=== PATIENT | male | born 1995 | race Caucasian/White ===

== ENCOUNTER 2017-07-04 16:36 | Emergency (ER) | payer OTHER ==
[2017-07-04] MEDS ORDERED: HYDROmorphone 2 MG/ML Syringe IVPUSH ONE (16:53)
[2017-07-04] MEDS ORDERED: Sodium Chloride 0.9% 2.5 ML Syringe FLUSH PRN (16:53)
[2017-07-04] MEDS ORDERED: Ondansetron 4 MG/2 ML SDV IVPUSH ONE (16:53)
[2017-07-04] MEDS ORDERED: Sodium Chloride 0.9% 10 ML Syringe FLUSH PRN (16:53)
[2017-07-04] MEDS ORDERED: Sodium Chloride 0.9% 1,000 ML IV ONE (16:53)
--- NOTE | 2017-07-04 17:01 | EDM.PDOC ---
ED HPI GENERAL MEDICAL PROBLEM - General Chief Complaint: Trauma Stated Complaint: BROKEN PELVIS Time Seen by Provider: 07/04/17 16:43 - History of Present Illness INITIAL COMMENTS - FREE TEXT/NARRATIVE: HISTORY AND PHYSICAL: History of present illness: Patient is a 21-year-old male who presents after sustaining an injury while at work yesterday and undergoing a CT scan as an outpatient and referred here for further evaluation and care. 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 Because of a malfunction of a cable the patient started descending rapidly but did not hit any other objects nor did he hit the ground because the safety harness engaged which was mostly wrapped around his pelvis area. He immediately had pain to his pelvis and lower back and abdomen and was seen by occupational health and today went over for a plain x-ray at [facility]. The patient was referred here as an outpatient to get a CT scan of the bony pelvis which indicated several bony fractures on the report. I reviewed that report indicates a slightly comminuted fracture of the left sacral alar, a fracture through the anterior inferior aspect of the acetabulum on the left, a fracture of the left symphysis pubis and a nondisplaced fracture of the left issue. The patient has been having excisional eating pain with any movement since this occurred and can barely ambulate. He has had no nausea or vomiting and has passed his urine. He has no neurosensory changes in his lower extremities but has great discomfort with any movement of his trunk or lower extremities. He has no chest pain no rib pain no neck pain had pain or upper extremity complaints. The patient has not had dizziness lightheadedness shortness of breath or chest pain. Review of systems: As per history of present illness and below otherwise all systems reviewed and negative. Past medical history: As per history of present illness and as reviewed below otherwise noncontributory. Surgical history: As per history of present illness and as reviewed below otherwise noncontributory. Social history: No reported history of drug or alcohol abuse. Family history: As per history of present illness and as reviewed below otherwise noncontributory. Physical exam: General: Well-developed well-nourished thin man who is nontoxic but is uncomfortable with any movement. Vital signs have been reviewed by me. HEENT: Atraumatic, normocephalic, pupils reactive, negative for conjunctival pallor or scleral icterus, mucous membranes moist, throat clear, neck supple, nontender, trachea midline. The patient has no midline step-offs tenderness or defects of the cervical spine Lungs: Clear to auscultation, breath sounds equal bilaterally, chest nontender. There is no defects deformities or crepitus and no wheezing or stridor is appreciated. Heart: S1S2, regular rhythm slightly tachycardic rate on my evaluation secondary to pain, negative for clicks, rubs, or JVD. Abdomen: Soft, nondistended, patient has normoactive bowel sounds and has diffuse lower abdominal tenderness with voluntary guarding and minimal upper abdominal tenderness. Negative for masses or hepatosplenomegaly. Pelvis: Stable but there is diffuse tenderness at all areas of palpation and the patient has difficulty focusing on any one area. Genitourinary: Testicles are descending bilaterally and there is no blood at the urethral meatus and no evidence of any external trauma. There is no swelling or tenderness appreciated Rectal: Deferred. Extremities: Atraumatic, negative for cords or calf pain. Neurovascular unremarkable. Patient has decreased range of motion of his lower extremities due to discomfort other no palpable deformities of any of his extremities nor any soft tissue swelling Neuro: Awake, alert, oriented. Cranial nerves II through XII unremarkable. Motor and sensory unremarkable throughout. Exam nonfocal. Dorsi and plantar flexion is intact 5/5 inclusive of the great toe bilaterally Back: There are no midline step-offs or defects of the thoracic or lumbar spine but there is diffuse lumbar spine tenderness which is difficult to ascertain if it is due to that region or due to the pelvic fractures that have been identified. Diagnostics: CBC CMP INR lipase UA CT scan of the lumbar spine and abdomen and pelvis 1 view chest x-ray CT scan of the bony pelvis has been reviewed by me and is as above Therapeutics: IV IV fluids Dilaudid Zofran Patient looks much improved from a pain perspective and is sitting more up in bed and more interactive. I discussed with him all testing results including the multiple findings on CAT scan including the minimal compression fractures at T10-T11 and T12 as well as the fractures of the left sacral alar, bilateral superior pubic rami near the acetabulum, left inferior pubic rami fracture and probable right inferior pubic rami fracture. He is also aware of the pelvic hemorrhage seen along the low left pelvic sidewall about the urinary bladder and in the presacral space. He currently is hemodynamically stable and is aware of the need for transfer as a result of these injuries. I discussed this case with the ER doctor at [facility] in [place], Dr. Olivarez, at [phone]. He agrees that as the patient is stable and the injury occurred yesterday that he can be transferred by ground which I also feel comfortable with. I will arrange the transfer and he has accepted the patient to their facility. As this trauma occurred yesterday a trauma alert and trauma code were not indicated and her surgeon was not contacted for management of this case as he clearly needed transfer where there is orthopedic/pelvic surgery and adequate resources to manage his pain and physical therapy. Critical care time excluding procedures--31 minutes Impression: Multiple pelvic and acetabular fractures with pelvic hemorrhage status post pelvic blunt trauma yesterday, now compression fractures at T10-T11 and T12 Definitive disposition and diagnosis as appropriate pending reevaluation and review of above. Pelvic & Left Leg Pain Score (Numeric/FACES): 4 - Related Data Allergies Allergy/AdvReac Type Severity Reaction Status Date / Time No Known Allergies Allergy Verified 07/04/17 17:44 Review of Systems - Review of Systems Review Of Systems: ROS reveals no pertinent complaints other than HPI. ED EXAM, GENERAL - Physical Exam Exam: See Below (See dictation) Course - Vital Signs Last Recorded V/S: Last Vital Signs Temp 37.9 C 07/04/17 16:56 Pulse 87 07/04/17 18:14 Resp 18 07/04/17 18:14 BP 110/63 07/04/17 18:14 Pulse Ox 98 07/04/17 18:14 - Orders/Labs/Meds Orders: Active Orders 24 hr Category Date Time Status Abdomen Pelvis w Cont [CT] Stat Exams 07/04/17 16:53 Taken Chest 1V Frontal [CR] Stat Exams 07/04/17 17:01 Taken Lumbar Spine wo Cont [CT] Stat Exams 07/04/17 16:53 Taken UA W/MICROSCOPIC [URIN] Stat Lab 07/04/17 16:52 Uncollected Sodium Chloride 0.9% [Saline Flush] Med 07/04/17 16:53 Active 10 ml FLUSH ASDIRECTED PRN Sodium Chloride 0.9% [Saline Flush] Med 07/04/17 16:53 Active 2.5 ml FLUSH ASDIRECTED PRN Saline Lock Insert [OM.PC] Stat Oth 07/04/17 16:52 Ordered Medication Orders Sodium Chloride (Saline Flush) 10 ml FLUSH ASDIRECTED PRN PRN Reason: Keep Vein Open Sodium Chloride (Saline Flush) 2.5 ml FLUSH ASDIRECTED PRN PRN Reason: Keep Vein Open Labs: Laboratory Tests 07/04/17 07/04/17 07/04/17 Range/Units 17:01 17:01 17:01 WBC 6.85 (4.0-11.0) K/uL RBC 4.48 L (4.50-5.90) M/uL Hgb 13.7 (13.0-17.0) g/dL Hct 38.8 (38.0-50.0) % MCV 86.6 (80.0-98.0) fL MCH 30.6 (27.0-32.0) pg MCHC 35.3 (31.0-37.0) g/dL RDW Std Deviation 41.2 (28.0-62.0) fl RDW Coeff of Johnie 13 (11.0-15.0) % Plt Count 165 (150-400) K/uL MPV 10.90 (7.40-12.00) fL Neut % (Auto) 70.4 (48.0-80.0) % Lymph % (Auto) 20.6 (16.0-40.0) % [place] % (Auto) 6.4 (0.0-15.0) % Eos % (Auto) 2.5 (0.0-7.0) % Baso % (Auto) 0.1 (0.0-1.5) % Neut # (Auto) 4.8 (1.4-5.7) K/uL Lymph # (Auto) 1.4 (0.6-2.4) K/uL [place] # (Auto) 0.4 (0.0-0.8) K/uL Eos # (Auto) 0.2 (0.0-0.7) K/uL Baso # (Auto) 0.0 (0.0-0.1) K/uL Nucleated RBC % 0.0 /100WBC Nucleated RBCs # 0 K/uL INR 1.12 Sodium 141 (136-146) mmol/L Potassium 4.0 (3.5-5.1) mmol/L Chloride 109 (98-110) mmol/L Carbon Dioxide 22 (21-31) mmol/L BUN 13 (6.0-23.0) mg/dL Creatinine 1.0 (0.6-1.5) mg/dL Est Cr Clr Drug Dosing 118.94 mL/min Estimated GFR (MDRD) > 60.0 ml/min Glucose 99 (60-110) mg/dL Calcium 8.8 (8.8-10.8) mg/dL Total Bilirubin 1.5 (0.1-1.5) mg/dL AST 31 (5-40) IU/L ALT 30 (8-54) IU/L Alkaline Phosphatase 65 (40-150) Total Protein 6.6 (6.0-8.0) g/dL Albumin 4.2 (3.5-5.0) g/dL Globulin 2.4 (2.0-3.5) g/dL Albumin/Globulin Ratio 1.8 (1.3-2.8) Lipase 30 (7-80) U/L Meds: Medications Generic Name Dose Route Start Last Admin Trade Name Freq PRN Reason Stop Dose Admin Sodium Chloride 10 ml 07/04/17 16:53 Saline Flush FLUSH ASDIRECTED PRN Keep Vein Open Sodium Chloride 2.5 ml 07/04/17 16:53 Saline Flush FLUSH ASDIRECTED PRN Keep Vein Open Discontinued Medications Generic Name Dose Route Start Last Admin Trade Name Freq PRN Reason Stop Dose Admin Hydromorphone HCl Confirm 07/04/17 17:04 07/04/17 17:10 Dilaudid Administered 07/04/17 17:05 1 mg Dose Administration 1 mg .ROUTE .STK-MED ONE Sodium Chloride 1,000 mls @ 999 mls/hr 07/04/17 16:53 07/04/17 17:08 Normal Saline IV 07/04/17 17:53 999 mls/hr STAT ONE Administration Iopamidol 90 ml 07/04/17 17:45 07/04/17 17:46 Isovue-370 (76%) IVPUSH 07/04/17 17:46 90 ml ONETIME STA Administration Ondansetron HCl 4 mg 07/04/17 16:53 07/04/17 17:08 Zofran IVPUSH 07/04/17 16:54 4 mg ONETIME ONE Administration Departure - Departure Time of Disposition: 18:58 Disposition: DC/Tfer to Acute Hospital 02 Condition: Fair Clinical Impression: Pelvic fracture Qualifiers: Encounter type: initial encounter Pelvic bone location: multiple parts Fracture type: closed Fracture alignment: with stable disruption of pelvic ring Qualified Code(s): S32.810A - Multiple fractures of pelvis with stable disruption of pelvic ring, initial encounter for closed fracture - Discharge Information Forms: ED Department Discharge - My Orders Last 24 Hours: My Active Orders 07/04/17 16:52 UA W/MICROSCOPIC [URIN] Stat Saline Lock Insert [OM.PC] Stat 07/04/17 16:53 Abdomen Pelvis w Cont [CT] Stat Lumbar Spine wo Cont [CT] Stat Sodium Chloride 0.9% [Saline Flush] 10 ml FLUSH ASDIRECTED PRN Sodium Chloride 0.9% [Saline Flush] 2.5 ml FLUSH ASDIRECTED PRN 07/04/17 17:01 Chest 1V Frontal [CR] Stat - Assessment/Plan Last 24 Hours: My Active Orders 07/04/17 16:52 UA W/MICROSCOPIC [URIN] Stat Saline Lock Insert [OM.PC] Stat 07/04/17 16:53 Abdomen Pelvis w Cont [CT] Stat Lumbar Spine wo Cont [CT] Stat Sodium Chloride 0.9% [Saline Flush] 10 ml FLUSH ASDIRECTED PRN Sodium Chloride 0.9% [Saline Flush] 2.5 ml FLUSH ASDIRECTED PRN 07/04/17 17:01 Chest 1V Frontal [CR] Stat
[2017-07-04] MEDS ORDERED: HYDROmorphone 1 MG/ML Syringe IM ONE (17:09)
[2017-07-04] MEDS: HYDROmorphone 1 MG/ML Syringe ONE (17:10)
[2017-07-04 17:45] LABS: CHLORIDE,CL 109 mmol/L (98-110); SODIUM,NA 141 mmol/L (136-146)
[2017-07-04] MEDS ORDERED: Iopamidol 755 Mg/ML 100 ML Bottle IVPUSH STA (17:45)
[2017-07-04] MEDS ORDERED: HYDROmorphone 1 MG/ML Syringe IV ONE (19:35)
[2017-07-05] MEDS: HYDROmorphone 1 MG/ML Syringe ONE (06:58)
--- NOTE | 2017-07-05 17:03 | CT ---
EXAM DATE: 07/04/17 PATIENT'S AGE: 21 Patient: CAROLINA RIOJAS Facility: [place], [place] Site . Site : 1995 Study: CT Abdomen/Pelvis [id number]/1/2018 5:48:06 PM Ordering Physician: Mandeep Trujillo Final Report: INDICATION: Trauma. Abdominal pain and tenderness. Pelvic fractures. CT ABDOMEN AND PELVIS WITH CONTRAST TECHNIQUE: Multidetector CT imaging was performed through the abdomen and pelvis following intravenous contrast administration using 90 mL Isovue 370. Coronal and sagittal reconstructions were generated. COMPARISON: 07/04/[address] FINDINGS: Lower chest: Lung bases are clear. Liver: Unremarkable aside from a small hypodensity in the anterior liver on image 32 of series 201, likely benign. Gallbladder and bile ducts: No gallbladder wall thickening or calcified gallstones. No biliary dilation identified. Pancreas: Unremarkable. Spleen: Normal. Adrenals: No nodules or masses. Kidneys, ureters, and urinary bladder: No renal masses or hydronephrosis. No bladder mass or definite wall thickening. Gastrointestinal tract: Normal caliber bowel without wall thickening. The appendix is normal. Vascular structures: Normal for age. Peritoneum: No free air, abscess, or significant free fluid. Lymph nodes: No pathologically enlarged nodes identified. Reproductive organs: No pelvic masses. Bones: Probable minimal compression fractures of the T10 and T11 vertebral bodies. Mildly comminuted fracture of the left sacral ala. Nondisplaced fractures of the lateral portions of the bilateral superior pubic rami at their junctions with the acetabula. Nondisplaced fracture of the left inferior pubic ramus and questionable nondisplaced fracture of the inferior right pubic ramus. Moderate amount of pelvic hemorrhage along the low left pelvic sidewall and about the urinary bladder, greatest anteriorly and on the left. Moderate hemorrhage in the presacral space, as well. IMPRESSION: 1. Fractures of the left sacral ala, bilateral superior pubic rami, and left inferior pubic ramus. Probable fracture of the right inferior pubic ramus and probable minimal compression fractures of T10 and T11. 2. Moderate pelvic hemorrhage along the low left pelvic sidewall, about the urinary bladder, and in the presacral space. BONNIE EUBANKS MD [employer] Dictated by Andrew Eubanks MD @ 07/04/2017 6:30:46 PM Dictated by: Andrew Eubanks MD @ 07/04/2017 18:31:33 (Electronic Signature) Report Signed by Proxy. [facility]
--- NOTE | 2017-07-05 17:04 | CT ---
EXAM DATE: 07/04/17 PATIENT'S AGE: 21 Patient: CAROLINA RIOJAS Facility: [place], [place] Site . Site : 1995 Study: CT Spine Lumbar [id number]/1/2018 5:49:29 PM Ordering Physician: Mandeep Trujillo Final Report: INDICATION: Trauma. Back Pain, Pelvic Fractures. CT LUMBAR SPINE WITHOUT CONTRAST TECHNIQUE: Multidetector axial CT imaging was performed through the lumbar spine , without contrast. Sagittal and coronal reconstructions were generated. FINDINGS: There is a probable minimal compression fracture of the T12 vertebral body. No acute fractures are identified in the lumbar spine. Disc spaces appear preserved. Osseous alignment is within normal limits and no subluxation is seen. Paravertebral soft tissues are unremarkable. Mildly comminuted fracture of the left sacral ala is noted. IMPRESSION: 1. Probable minimal compression fracture of T12. 2. Mildly comminuted fracture of the left sacral ala. 3. No lumbar spine fracture identified. BONNIE EUBANKS MD [employer] Dictated by Andrew Eubanks MD @ 07/04/2017 6:33:43 PM Dictated by: Andrew Eubanks MD @ 07/04/2017 18:35:24 (Electronic Signature) Report Signed by Proxy. MARY
--- NOTE | 2017-07-05 17:05 | CR ---
EXAM DATE: 07/04/17 PATIENT'S AGE: 21 Patient: CAROLINA RIOJAS Facility: [place], [place] Site . Site : 1995 Study: XRay Chest [id number]/1/2018 5:51:32 PM Ordering Physician: Mandeep Trujillo Final Report: INDICATION: Pain/shortness of breath CHEST, ONE VIEW An AP radiograph of the chest was performed. Comparison: No previous studies are currently available for comparison. The lungs appear clear and no pleural effusions are identified. The cardiomediastinal silhouette and pulmonary vasculature appear normal, as do the visualized bones. IMPRESSION: No acute intrathoracic abnormality identified. BONNIE EUBANKS MD [employer] [facility] Dictated by: Andrew Eubanks MD @ 07/04/2017 18:12:30 (Electronic Signature) Report Signed by Proxy. [facility]
== END 2017-07-04 19:43 ==
LOC: MW.ED 16:36
DX: S32.810A Multiple fractures of pelvis with stable disruption of pelvic ring, initial encounter for closed fracture (principal); S32.402A Unspecified fracture of left acetabulum, initial encounter for closed fracture; S22.079A Unspecified fracture of T9-T10 vertebra, initial encounter for closed fracture; S22.089A Unspecified fracture of T11-T12 vertebra, initial encounter for closed fracture; X58.XXXA Exposure to other specified factors, initial encounter; Y92.65 Oil rig as the place of occurrence of the external cause; Y99.0 Civilian activity done for income or pay; S32.89XA Fracture of other parts of pelvis, initial encounter for closed fracture
CPT/HCPCS: 36415; 71045; 72192; 74177; 80053; 83690; 85025; 85610; 96361; 96374; 96375; 96376; 99285; J1170; J2405; J7040; Q9967; 72131-26